=== PATIENT | female | born 1990 | race Caucasian/White ===

== ENCOUNTER 2016-09-21 11:41 | Emergency (ER) | payer BC, OTHER | END 2016-09-21 12:38 | disposition home or self-care (01) | LOC: CED 11:41 | DX: J06.9 Acute upper respiratory infection, unspecified (principal); H66.92 Otitis media, unspecified, left ear; Z20.818 Contact with and (suspected) exposure to other bacterial communicable diseases | CPT/HCPCS: 99282 ==